=== PATIENT | male | born 1955 | race Caucasian/White ===

== ENCOUNTER 2018-06-09 09:30 | Day surgery (SDC) | payer OTHER ==
[2018-06-09] MEDS ORDERED: MIDAZOLAM 1 MG/ML 2 ML INJ ×3 (12:06)
[2018-06-09] MEDS ORDERED: FENTAnyl 50 MCG/ML VIAL (12:06)
== END 2018-06-09 16:11 | disposition home or self-care (01) ==
LOC: GIL 09:30
DX: Z12.11 Encounter for screening for malignant neoplasm of colon (principal); K57.30 Diverticulosis of large intestine without perforation or abscess without bleeding
CPT/HCPCS: 45378